=== PATIENT | male | born 1980 | race Caucasian/White ===

== ENCOUNTER 2016-04-17 21:55 | Observation (INO) | payer OTHER, SELFPAY ==
[~2016-04-17] VITALS: Ht 188 cm; Wt 137.0 kg
--- NOTE | ~2016-04-17 | ECH ---
Transthoracic Echocardiography Report (TTE) Demographics Patient Name MYRNA ECHOLS Date of Study 04/18/2016 Patient Number [id number] Visit Number [id number] Date of 1980 Room Number 405 Accession Number [id number] Gender Male Age 35 year(s) Referring Harriet Irvin Viscose Cellar Worker [facility] Physician Physician Interpreting Neisha Katz Fitter Machinist Physician Supervising Ordering Physician Harriet Irvin MD, MD/P Nurse Stress Crane Helper Conclusions Contractility Score Summary Normal Left Ventricular contractility was noted. Summary Technically adequate exam. The estimated left ventricular ejection fraction is 55-60% in underlying atrial fibrillation. The right atrium is mildly dilated. The aortic root appears mildly dilated. The maximum diameter measures 4 cm. The ascending aorta appears mildly dilated. The maximum diameter measures 3.6 cm. Trivial mitral regurgitation. Procedure Type of Study TTE procedure:Echo Complete SF. Procedure Date Date: 04/18/2016 Start: 08:23 AM Technical Quality: Adequate visualization Indications:Atrial fibrillation. Appropriate Use Criteria: 9 Height: 74 inches Weight: 302.01 pounds BSA: 2.59 m Rhythm: Atrial fibrillation HR: 94 bpm BP: 106/77 mmHg M-Mode/2D Measurements LV Diastolic Dimension: 5.5 cm LV Systolic Dimension: 4.7 cm LV Septum Diastolic: 0.96 cm LV PW Diastolic: 0.96 cm AO Root Dimension: 3.96 cm Cardiac Output: 9.13 l/min LA Dimension: 3.75 cm Cardiac Index: 3.53 l/min*m RV Diastolic Dimension: 3.49 cm LA volume index: 30 ml/m LVOT: 2.5 cm LVOT VTI: 19.8 cm RV Base: 3.8 cm LV Stroke volume: 97.14 ml RV Mid: 2.3 cm LV Stroke volume index: 37.51 ml/m TAPSE: 2.7 cm TDI-S': 14 cm/s Doppler Measurements AV Peak Velocity: 1.22 m/s MV Peak E-Wave: 0.84 m/s AV Peak Gradient: 5.97 mmHg AV Mean Gradient: 2.4 mmHg LVOT Peak Velocity: 1.06 m/s AV Area (Continuity):3.49 cm PV Peak Velocity: 0.79 m/s PV Peak Gradient: 2.48 mmHg Estimated RAP:10 mmHg RA Area: 18.14 cm Findings Left Ventricle Normal left ventricle size and function. Diastolic function indeterminate due to patient's arrhythmia. Right Ventricle Normal right ventricle structure and function. Left Atrium Normal left atrial size. Right Atrium The right atrium is mildly dilated. Mitral Valve Normal mitral valve structure and function. Trivial mitral regurgitation by color Doppler. Aortic Valve Normal aortic valve structure and function. Tricuspid Valve Normal tricuspid valve structure and function. Trivial tricuspid regurgitation by color Doppler. Insufficient jet to calculate pulmonary pressures. Pulmonic Valve The pulmonic valve is not well visualized. Pericardial Effusion No evidence of pericardial effusion. Miscellaneous The aortic root appears mildly dilated. The maximum diameter measures 4 cm. The ascending aorta appears mildly dilated. The maximum diameter measures 3.6 cm. Pleural Effusion No evidence of pleural effusion. Contractility Score LV regional wall motion:(0-Non visualized 1-Normal 2-Hypokinesis 3-Akinesis 4-Dyskinesis 5-Aneurysm) Signature
--- NOTE | 2016-04-18 03:42 | ER ---
ADMIT: 04/17/2016 RM/LOC: ER [facility] MR#: [id number] [address] [place], [place] [address] MYRNA ECHOLS [address] [place] [address] Emergency Room Report SEX: M AGE: 35 : 1980 DATE: 04/17/2016 CHIEF COMPLAINT: Palpitations. HISTORY OF PRESENT ILLNESS: The patient is a 35-year-old male complaining of acute onset of palpitations associated with vague chest tightness. Denies any shortness of breath, nausea, or diaphoresis. States he has had palpitations in the past, but has never lasted this long. FAMILY HISTORY: Positive for premature ischemic heart disease in father and DVT/PEs in sister. PAST MEDICAL HISTORY: ALLERGIES: NONE. MEDICATIONS: None. ILLNESSES: Obesity. OPERATIONS: None. SOCIAL HISTORY: , employed, nonsmoker, nondrinker, no illicit drugs. FAMILY HISTORY: Positive for premature ischemic heart disease and coagulopathy in sister. REVIEW OF SYSTEMS: A 12-point review of systems negative for all other systems, illnesses, or operations except as outlined above. PHYSICAL EXAMINATION: VITAL SIGNS: Temp 96, pulse 173 and regular, respirations 20, BP 141/94, SaO2 of 95% on room air. GENERAL: Anxious, non-diaphoretic, without jaundice or icterus. HEENT: Normocephalic. No evidence of epistaxis, rhinorrhea, or otorrhea. NECK: Supple without lymphadenopathy or thyromegaly. CHEST: Clear. Breath sounds equal without rales, rhonchi, or wheeze. HEART: Tachycardic, regular without murmur, gallop, or edema. ABDOMEN: Obese, nontender, nondistended without mass or megaly. Bowel sounds hypoactive. EXTREMITIES: No evidence of Homans sign, synovitis, or dermatitis. NEURO: EOMI. PERRLA. No evidence of drift, dysarthria, or ataxia. Gait normal. MENTAL STATUS: Alert, oriented, anxious without delusions, hallucinations, or abnormal thought content. MEDICAL DECISION MAKING: EKG shows atrial fibrillation with rapid ventricular response. Chest x-ray, no acute findings. Normal CBC, CMP, except potassium 3.5. CRP less than 0.29, lipase 179, magnesium 2.1. Normal TSH and free T4. Alcohol is negative. Tox screen pending. Troponin negative. Minimally ADMIT: 04/17/2016 RM/LOC: ER [facility] MR#: [id number] [address] [address] MYRNA ECHOLS [address] [place] [address] Emergency Room Report SEX: M AGE: 35 : 1980 elevated CK and MB with normal index. The patient was started on Cardizem bolus and drip with slowing of heart rate to the 90s. Discussed anticoagulation with Dr. Pham, who agreed and gave orders to nursing staff including anticoagulation. Due to the patient's presentation, findings, and intervention, 60 minutes of critical care is warranted. DIAGNOSES: 1. Acute onset paroxysmal atrial fibrillation with rapid ventricular response. 2. Morbid obesity. 3. Family history positive for premature ischemic heart disease and coagulopathy. RECOMMENDATION: Admit inpatient PCU for Dr. Pham. ADMISSION/DISCHARGE CONDITION: Stable. Patient is a full code. Davie Escalante MD/ norma JOB #: [id number] CC: Davie Escalante MD, Attending Physician UNKNOWN, Family Physician Jeremie Larios MD
--- NOTE | 2016-04-19 08:58 | CO ---
ADMIT: 04/17/2016 RM/LOC: 405 [facility] MR#: [id number] [address] [address] MYRNA ECHOLS [address] [place] [address] Consultation SEX: M AGE: 35 : 1980 DATE OF CONSULTATION: 04/18/2016 ATTENDING PHYSICIAN: Jeremie Larios MD CONSULTING PHYSICIAN: Jonah Driver MD REASON FOR CONSULT: New-onset atrial fibrillation. Danuta Goldstein RN, scribing for Dr. Jonah Driver. HISTORY OF PRESENT ILLNESS: Jamie is a pleasant 35-year-old gentleman I have been asked to see in Cardiology consultation by Dr. Jeremie Larios for new onset atrial fibrillation with rapid ventricular rate. He has no prior history of coronary artery disease. He denies any history of tobacco use, high blood pressure, hyperlipidemia, or diabetes. He does have family history of premature coronary artery disease with father having his first heart attack at the age of 50-52 and a second heart attack later on, requiring percutaneous coronary intervention. He also describes paternal grandfather dying in his early 50s of a heart attack as well. 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 He had been up since 2 a.m. the night before as he had gotten ready to go to a swap meet in [place] and had to drive there get there early. He was there all day, came home, felt fine all day. He then was getting ready for bed. As he was just getting ready to lay down, he noticed a pressure in his chest that would not go away. He denies any palpitations, shortness of breath, lightheadedness, edema, or orthopnea. Because of this severity of his symptoms, he decided to go to the emergency room where EKG demonstrated atrial fibrillation with rapid ventricular rate. He was placed on Cardizem drip. His rates are better controlled in the low 100s to 90s, but he continues to be in atrial fibrillation. Currently, he denies any symptoms of chest discomfort, shortness of breath, palpitations, presyncope, or peripheral edema. CK and MB are mildly elevated in the first and second set with second set showing decreased levels at 365 and MB of 4.5, troponins been negative x2. TSH and free T4 have been negative. Fasting lipid profile was drawn showing an LDL of 96, HDL 46, the total cholesterol 159. Other lab work is unremarkable. PAST MEDICAL HISTORY: Jamie denies any significant past medical history other than occasional gastroesophageal reflux. He denies any history of surgeries. ALLERGIES: NO KNOWN MEDICATION ALLERGIES. MEDICATIONS: No home medications, patient is on: 1. Cardizem drip at 5 mg an hour. 2. Normal saline at 100 mL an hour. 3. Lovenox 140 mg subcu every 12 hours. FAMILY HISTORY: Positive family history of premature coronary artery disease in father and grandfather. ADMIT: 04/17/2016 RM/LOC: 405 [facility] MR#: [id number] [address] [address] MYRNA ECHOLS [address] [place] [address] Consultation SEX: M AGE: 35 : 1980 SOCIAL HISTORY: Jamie is . He lives at home with his . He is a truck assembler. He drinks about 3 mountain Dews a day. He has occasional alcohol use on the weekends. Denies any special diet or history of drug use. Denies any tobacco history. REVIEW OF SYSTEMS: GENERAL: Denies fatigue, fever, chills, sweats, rash, or weight loss. EYES: Wears corrective lenses. Denies glaucoma or cataracts. THROAT, MOUTH, AND EARS: Denies hearing loss or problems with nose, mouth or throat. PULMONARY: Denies cough, sputum production, asthma, emphysema or bronchitis. Denies snoring loudly, wakefulness at night, or fatigue upon awakening. GASTROINTESTINAL: Occasional heartburn and acid reflux. Denies difficulty swallowing. No change in bowel habits. Denies dark or bloody stools. No history of ulcers, hiatal hernia, or gallbladder or liver disease. GENITOURINARY: Denies dysuria, hematuria, nocturia, urinary tract infection, or kidney stones. Denies history of renal insufficiency or failure. MUSCULOSKELETAL: Denies history of arthritis or gout. Denies muscle or joint pains. ENDOCRINE: Denies history of thyroid dysfunction or diabetes. HEMATOLOGIC: Denies history of anemia, easy bruising, or cancer. NEUROLOGIC: Denies chronic headaches, dizziness, syncope, stroke, seizures or numbness or tingling. PSYCHIATRIC: Denies history of mental illness or feelings of depression. PHYSICAL EXAMINATION: VITAL SIGNS: Blood pressure 106/77, heart rate 93, respirations 16, temperature 96.7, oxygenation 98% on room air. SKIN: [place], warm and dry. EYES: Sclerae clear. No xanthelasmas. ENT: Oral mucosa is pink and moist. No jugular venous distention or carotid bruits. CHEST: Respirations are even and unlabored. Lungs are clear to auscultation. HEART: Irregularly irregular. No murmurs, gallops, or rubs. ABDOMEN: Soft, obese, nontender, nondistended. MUSCULOSKELETAL: Gait is normal. EXTREMITIES: Peripheral pulses palpable. No clubbing, cyanosis or edema. PSYCHIATRIC: Alert and oriented. Mood and affect are appropriate. DIAGNOSTIC DATA: Chest x-ray on 04/17, showed no acute process. Sodium 143, potassium 3.9, BUN 13, creatinine 1.1, glucose 103, AST 24, ALT 32. Cholesterol 159, triglycerides 83, HDL 46, LDL 96, magnesium 2.1. ProBNP 27. Free T4 of 0.98, and TSH 3.33. White blood cell count 9.9, hemoglobin 15.3, hematocrit 45.5, and platelets 194. Two sets cardiac enzymes performed, second set shows CK of 365, MB of 4.5, troponin less than 0.015 on both sets. ASSESSMENT/PLAN: Newly diagnosed atrial fibrillation with RVR. Jamie is a pleasant 35-year-old gentleman with no prior history of coronary ADMIT: 04/17/2016 RM/LOC: 405 [facility] MR#: [id number] [address] [address] MYRNA ECHOLS [address] [place] [address] Consultation SEX: M AGE: 35 : 1980 artery disease admitted with palpitations but worsening chest pressure and newly diagnosed atrial fibrillation with RVR. By history, he has had no obvious etiology. I suspect it will be paroxysmal. I will review echocardiogram that was performed this morning and may give flecainide p.o. today. Outpatient stress test for further evaluation of ischemia. He will need anticoagulation for short term. Thank you for the consultation. "I have read and agree with the documentation that has been completed regarding this visit. By signing this record, I attest that the documentation was completed in my physical presence and is an accurate record of the encounter." Danuta Goldstein RN / Jonah Driver MD / norma JOB #: [id number] CC: Jeremie Larios MD, Attending Physician Jeremie Larios MD, Family Physician
[2016-04-19] MEDS ORDERED: CARDIZEM CD240 MG PO (10:29)
[2016-04-19] MEDS ORDERED: XARELTO20 MG PO (10:29)
--- NOTE | 2016-05-09 09:00 | HP ---
ADMIT: 04/17/2016 RM/LOC: 405 [facility] MR#: [id number] [address] [place], [place] [address] MYRNA ECHOLS [address] [place] [address] History and Physical SEX: M AGE: 35 : 1980 DATE OF SERVICE: CHIEF COMPLAINT: Chest pain and palpitations. HISTORY OF PRESENT ILLNESS: Alexis is a 35-year-old white male, admitted to [facility] through the ER and [facility] after presenting with chest pain and tachycardia with an episode of atrial fibrillation with rapid ventricular response. He states, he other than this episode, has had no health problems. Denied any previous chest pain, shortness of breath, nausea, vomiting, or other concerns. He presented to the ER today due to his tachycardia and was evaluated and found to be in atrial fibrillation with rapid ventricular response. He was placed on a Cardizem per protocol and has rate controlled in the ER. He was started on Lovenox and admitted on the Cardizem drip for further evaluation and management. He states he feels fine now and would like to go home. PAST MEDICAL HISTORY: Operations include vasectomy. Illnesses: None. MEDICATIONS: None. ALLERGIES: NONE KNOWN. SOCIAL HISTORY: This is a 35-year-old white male. He has 3 children. He does not smoke and rarely drinks. FAMILY HISTORY: Heart attack in his father in his 40s and grandfather. Additionally he has a sibling with DVTs. REVIEW OF SYSTEMS: Remarkable for his initial palpitations and dyspnea, currently resolved. Remainder of review of systems negative. PHYSICAL EXAMINATION: VITAL SIGNS: Current temperature of 96.7, pulse 93, respiratory rate 16 with a blood pressure 106/77. In the ER, he had tachycardia with rates in the 130s per ER with verbal report. He weighs 302 pounds. GENERAL: Large man. Exam shows him to be alert, pleasant lying in hospital bed. No acute distress. HEENT: Pupils are reactive. Extraocular muscle intact. Membranes moist. NECK: Without nodes or masses. HEART: Regular without murmur. LUNGS: Clear. ABDOMEN: Obese and benign. and RECTAL: Deferred. EXTREMITIES: Reveal no clubbing, cyanosis, or edema. NEUROLOGIC: Exam is grossly normal including light touch, strength, and DTRs. LABORATORY DATA: Chest x-ray is normal. Labs include sodium 143, potassium 3.9, BUN of 13, creatinine 1.1 with glucose 103, AST and ALT are normal at 24 and 32. Magnesium is normal at 2.1. CPKs are 365 and 439 with MB of 4.5 and ADMIT: 04/17/2016 RM/LOC: 405 [facility] MR#: [id number] [address] [address] MYRNA ECHOLS [address] [place] [address] History and Physical SEX: M AGE: 35 : 1980 5.6. Troponin I normal at less than 0.015 x2. ProBNP is 27. TSH is normal at 3.3. Coags are negative. White count is 9.9, hemoglobin 13.9, and platelet count 194,000. Drug screen is negative and UA is unremarkable. Initial EKG shows atrial fibrillation with a rapid ventricular response with a rate of around 170. ASSESSMENT: 1. Atrial fibrillation with rapid ventricular response, currently rate controlled on Cardizem drip. 2. Exogenous obesity. 3. Family history of coronary artery disease. PLAN: We will obtain fasting lipids and echocardiogram. So cardiac enzymes and EKGs were obtained. We will obtain a formal [place] heart consult. He is currently on Cardizem and Lovenox per weight-based protocol. We will proceed with further evaluation and management based on course during hospitalization. Jeremie Larios MD/ norma JOB #: [id number] CC: Jeremie Larios, Attending Physician Jeremie Larios, Family Physician
== END 2016-04-18 16:02 | disposition home or self-care (01) ==
LOC: ER 21:55 → 4PCU 23:41
PROVIDERS: ADMIT Family Medicine
DX: I48.91 Unspecified atrial fibrillation (principal); E66.09 Other obesity due to excess calories; Z82.49 Family history of ischemic heart disease and other diseases of the circulatory system; Z98.890 Other specified postprocedural states; Z79.899 Other long term (current) drug therapy